=== PATIENT | male | born 1985 | race Caucasian/White ===

== ENCOUNTER 2025-07-05 10:25 | Outpatient (CLI) | payer BC, SELFPAY ==
--- NOTE | ~2025-07-05 | US_ITS ---
US renal BI 07/05/2025 11:39 Procedure: Realtime transabdominal ultrasound of the kidneys and bladder. Indication: Polycystic kidney disease Comparison: No prior studies for comparison. Findings: Renal echotexture is heterogeneous with innumerable bilateral renal cysts, consistent with known polycystic kidney disease. Limited evaluation for hydronephrosis. No solid masses are identified. Both kidneys appear enlarged. Bladder is unremarkable. Impression: 1: Innumerable bilateral simple cysts of the kidneys, consistent with polycystic kidney disease. Reviewed, dictated and finalized at location I. 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
--- NOTE | ~2025-07-05 | MR_ITS ---
EXAMINATION: MR brain/brain stem wo con DATE: 07/05/2025 11:00 INDICATION: Polycystic kidney disease. TECHNIQUE: Magnetic resonance imaging (MRI) of the brain and brainstem was performed without intravenous contrast. COMPARISON: None. FINDINGS: There is no intracranial hemorrhage, acute infarction, or abnormal intracranial mass lesion. There is a focus of increased T2-weighted signal intensity in the left subinsular white matter, which is normal as an isolated finding. The ventricles are normal in size. There is mild mucosal thickening in the paranasal sinuses. The orbits are normal. The mastoid air cells are normal. IMPRESSION: 1. Normal brain. Reviewed, dictated and finalized at location E. 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 Normal brain.
== END 2025-07-05 10:26 | disposition home or self-care (01) ==
PROVIDERS: PCP Family Medicine; Visit Provider Internal Medicine Nephrology
DX: R51.9 Headache, unspecified (principal); I12.9 Hypertensive chronic kidney disease with stage 1 through stage 4 chronic kidney disease, or unspecified chronic kidney disease; N18.32 Chronic kidney disease, stage 3b; N28.1 Cyst of kidney, acquired
CPT/HCPCS: 70551; 76770

== ENCOUNTER 2025-07-10 15:52 | Outpatient (CLI) | payer BC, SELFPAY ==
[2025-07-10 16:38] LABS: Albumin Level 4.8 g/dL (3.5-5.1); Anion Gap 5 mmol/L (4-12); Blood Urea Nitrogen 23 mg/dL (9-20); Calcium 9.6 mg/dL (8.4-10.2); Carbon Dioxide 29 mmol/L (22-30); Chloride 102 mmol/L (98-107); Estimated Glomerular Filt Rate 29; Glucose 96 mg/dL (65-110); Potassium 3.5 mmol/L (3.4-5.0); Sodium 136 mmol/L (137-145)
[2025-07-10 16:41] LABS: Total Protein Urine Random 93 mg/dL; Ur Ttl Prot Creatinine Ratio 0.67 mg/mg (0-0.20)
[2025-07-10 16:51] LABS: Parathyroid Intact 79.2 pg/mL (14.5-75.2)
== END 2025-07-10 15:53 | disposition home or self-care (01) ==
PROVIDERS: PCP Family Medicine; Visit Provider Internal Medicine Nephrology
DX: Q61.3 Polycystic kidney, unspecified (principal); I12.9 Hypertensive chronic kidney disease with stage 1 through stage 4 chronic kidney disease, or unspecified chronic kidney disease; N18.32 Chronic kidney disease, stage 3b
CPT/HCPCS: 36415; 80069; 82306; 82570; 83970; 84156

== ENCOUNTER 2025-07-24 09:00 | Outpatient (CLI) | payer BC, SELFPAY ==
--- NOTE | ~2025-07-24 | CT_ITS ---
EXAMINATION: CT abdomen pelvis wo con DATE: 07/24/2025 09:12 INDICATION: Chronic kidney disease, stage IV. TECHNIQUE: Computed tomography (CT) of the abdomen and pelvis was performed without intravenous contrast. Automated exposure control and iterative reconstruction technique were employed. The dose-length product was 552.71 mGy-cm. COMPARISON: None. FINDINGS: The visualized portions of the lung bases are clear without pneumonia or pleural effusion. The heart size is normal. No pericardial effusion. There are cysts in the liver measuring up to 13 mm. The spleen, gallbladder, pancreas, and adrenal glands are normal. There are innumerable cysts and hemorrhagic cysts in each kidney. Right kidney measures 23.4 x 12.6 x 13.3 cm. Left kidney measures 25.0 x 12.1 x 13.7 cm. There are no dilated loops of bowel. There are no pathologically enlarged lymph nodes. There is no free intraperitoneal fluid. There is mild lumbar spondylosis. IMPRESSION: 1. Polycystic kidney disease. Reviewed, dictated and finalized at location E. 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
== END 2025-07-24 09:01 | disposition home or self-care (01) ==
LOC: MICIMG 09:01
PROVIDERS: PCP Family Medicine; Visit Provider Internal Medicine Nephrology
DX: I12.9 Hypertensive chronic kidney disease with stage 1 through stage 4 chronic kidney disease, or unspecified chronic kidney disease (principal); N18.4 Chronic kidney disease, stage 4 (severe); Q61.3 Polycystic kidney, unspecified
CPT/HCPCS: 74176

== ENCOUNTER 2025-08-01 14:27 | Outpatient (CLI) | payer BC, SELFPAY ==
--- OUTSIDE RECORDS SUMMARY | 2025-08-01 14:46 | XMS_ITS ---
Author Organization Unknown ENCOUNTERS Encounter Performer Location Date Diagnosis Diagnosis Status Outpatient [facility] [address] [place] [address] [id number] Outpatient [facility] [address] [address] [id number] JOSUÉ *Note: Encounters from your own facility or health system may be excluded. Allergies, Adverse Reactions, Alerts Allergen Type Severity Identification Date amoxicillin drug allergy 2 [id number] Medications Name Date Quantity Days Supplied GPI Number
[2025-08-01 15:07] LABS: Alanine Aminotransferase 21 U/L (6-50); Albumin Level 5.2 g/dL (3.5-5.1); Alkaline Phosphatase 58 U/L (38-126); Anion Gap 14 mmol/L (4-12); Aspartate Amino Transferase 28 U/L (17-59); Bilirubin,Total 0.7 mg/dL (0.2-1.3); Blood Urea Nitrogen 34 mg/dL (9-20); Calcium 10.0 mg/dL (8.4-10.2); Carbon Dioxide 26 mmol/L (22-30); Chloride 106 mmol/L (98-107); Estimated Glomerular Filt Rate 29; Glucose 95 mg/dL (65-110); Osmolality Calculated 309 mOsm/kg (285-295); Potassium 3.5 mmol/L (3.4-5.0); Sodium 146 mmol/L (137-145); Total Protein 7.7 g/dL (6.3-8.2)
== END 2025-08-01 14:28 | disposition home or self-care (01) ==
PROVIDERS: PCP Family Medicine; Visit Provider Internal Medicine Nephrology
DX: N18.4 Chronic kidney disease, stage 4 (severe) (principal); Q61.3 Polycystic kidney, unspecified
CPT/HCPCS: 36415; 80053